=== PATIENT | female | born 1955 | race Caucasian/White ===

== ENCOUNTER 2017-03-20 08:42 | Emergency (ER) | payer OTHER ==
[2017-03-20 08:59] VITALS: BP 157/100; PULSE 81; TEMP 98.7; BMI 25.2
--- NOTE | 2017-03-20 09:44 | PDOC ---
History of Present Illness - General Chief Complaint: Bite Stated Complaint: BEE STING R HAND Time Seen by Provider: 03/20/17 08:57 - History of Present Illness Initial Comments: 03/20/17 10:06 Chief complaint: Bee sting History of present illness: Patient was stung in the right hand while driving approximately one and one half hours ago. She complains of swelling and tingling of the dorsum of the right hand. She took Zyrtec at the time. She denies tingling or irritation in the throat, swelling of the throat tongue or lips, wheezing or tightness in the chest. Past medical history: High blood pressure, mood disorder. Several years ago she was treated for bee sting with intravenous medication, had swelling of the face at that time, but the bee sting was in the area of the face. No ravi anaphylaxis or respiratory compromise at that time. In the interim, has been stung but has not developed any angioedema or anaphylactic reactions Review of systems: As above. Specifically, no symptoms that would indicate involvement of the throat face or lungs. No abdominal pain, nausea, vomiting, chest pain, or shortness of breath. Social/family history reviewed and noncontributory Physical exam: Alert and oriented well-developed well-nourished no acute distress cheerful and cooperative Afebrile, vital signs stable except for mildly elevated blood pressure, which is likely due to agitation HEENT is normal. Specifically, no edema or swelling of the uvula, posterior pharynx, tongue, lips, or face. Neck supple without bruit mass or nodes Lungs clear to P&A, full breath sounds throughout bilaterally, no wheezes CV regular without murmur rub or gallop Abdomen benign. Soft nontender without mass or organomegaly. Normal bowel sounds. Nondistended Neurological C2 to 12 intact. Strength full and symmetric. No focal sensory or motor deficits. Gait stable and unimpaired Extremities: There is mild edema of the dorsum of the right hand to the wrist. There is a small puncture noted on the dorsal aspect of the PIP joint. There is mild erythema, minimal tenderness to palpation. Pulses are full. No sensory or motor deficits. No involvement of the forearm elbow upper arm. No enlarged nodes are palpated Impression: Localized ALLERGIC reaction, no sign of systemic involvement, no sign of angioedema, close to 2 hours post stenting Plan: Symptomatic treatment, continue antihistamines, follow-up if symptoms progress. Fully ambulatory and in no distress upon discharge to follow-up as directed. Past History - Past Medical History Allergies/Adverse Reactions: Allergies Allergy/AdvReac Type Severity Reaction Status Date / Time No Known Allergies Allergy Verified 03/20/17 08:53 Home Medications: Ambulatory Orders Bupropion HCl [Wellbutrin Sr] 300 mg PO BID #14 02/01/15 Lisinopril [Prinivil -] 40 mg PO DAILY #7 tablet 02/01/15 HTN: Yes Psychiatric Problems: Yes (depression) - Suicide/Smoking/Psychosocial Hx Smoking History: Never smoked Hx Alcohol Use: No Drug/Substance Use Hx: No Substance Use Type: None *Physical Exam - Vital Signs Last Vital Signs Temp Pulse Resp BP Pulse Ox 98.7 F 81 18 157/100 100 03/20/17 08:50 03/20/17 08:50 03/20/17 08:50 03/20/17 08:50 03/20/17 08:50 *DC/Admit/Observation/Transfer Diagnosis at time of Disposition: Bee sting reaction Qualifiers: Encounter type: initial encounter Injury intent: accidental or unintentional Qualified Code(s): T63.441A - Toxic effect of venom of bees, accidental ( unintentional), initial encounter - Discharge Dispostion Disposition: HOME Condition at time of disposition: Improved Admit: No - Patient Instructions Printed Discharge Instructions: How to Care for an Insect Bite or Sting Additional Instructions: Antihistamines for 2 days, Zyrtec in the morning and Benadryl in the evening. Elevation, cool compresses, and observation of the area. If the swelling and redness begins to progress further up the arm, and infection may be developing. See her doctor immediately or return to the emergency room. In the future, if there is any swelling of the throat tongue or lips, even tickling or soreness in the throat, or tightness of the chest with wheezing, seek out the nearest emergency room immediately or call 911. - Post Discharge Activity Forms/Work/School Notes: Back to Work
== END 2017-03-20 09:45 | disposition home or self-care (01) ==
LOC: FER 08:42
DX: T63.441A Toxic effect of venom of bees, accidental (unintentional), initial encounter (principal); X58.XXXA Exposure to other specified factors, initial encounter; Y93.89 Activity, other specified; Y92.9 Unspecified place or not applicable
CPT/HCPCS: 99282-25